=== PATIENT | male | born 1985 ===

== ENCOUNTER 2023-10-03 15:08 | Emergency (ER) | payer SELFPAY ==
[2023-10-03 15:16] VITALS: BP 174/103; PULSE 73; RESP 16; TEMP 36.5; O2SAT 98; BMI 31.7
--- NOTE | 2023-10-03 15:16 | ED.EYEPROB ---
HPI - Eye Problem General Chief complaint: Eye Problems Stated complaint: Red eye, swollen for three days. Time Seen by Provider: 10/03/23 15:29 Source: patient Mode of arrival: ambulatory Limitations: no limitations History of Present Illness ED Provider: Darrin MUNROE HPI Narrative: 38 yold male with no pmh presents to the ED 4 days of right eye redness with crusting in the morning, and yellow clear discharge. Patient denies any recent trauma to the eye. Patient does not wear contacts. Only thing patient remembers swimming in the river. Patient denies any fever, chills, headache, or loss of vision. Patient denies any burrowing eye pain. Related Data Previous Rx's ?Medication ?Instructions ?Recorded erythromycin 5 mg/gram (0.5 %) eye 0.5 inch ophthalmic (eye) QID 7 10/03/23 ointment days #3.5 grams naproxen 500 mg tablet 500 mg PO BID PRN pain 7 days #14 10/03/23 tabs Allergies Allergy/AdvReac Type Severity Reaction Status Date / Time No Known Allergies Allergy Verified 10/03/23 15:19 Review of Systems Review of Systems: right eye redness/pain Yes all other systems are reviewed and are negative PMFSH Social History Social History Advance Directives: No Advance Directives Information Provided: No Do you have a plan to hurt others: No Plan Physical Exam Vital Signs: Vital Signs: Last Vital Signs Temp 97.1 F 10/03/23 17:37 Pulse 72 10/03/23 17:37 Resp 18 10/03/23 17:37 BP 146/96 H 10/03/23 17:37 Pulse Ox 99 10/03/23 17:37 O2 Del Method Room Air 10/03/23 17:37 BMI result Body Mass Index 31.7 Const: General: cooperative, healthy appearing, comfortable, no acute distress, well developed, alert, awake and Physically active Orientation/consciousness: patient oriented x3 HEENT: Head: Yes normal to inspection, Yes No palpable skull fracture present, Yes normocephalic, Yes atraumatic and No abrasion Eyes: Other: Right eye: Positive for yellow crusting, matting, discharged on eyelids. Positive for conjunctival scleral redness. Negative for hyphema. Negative for globe tenderness or photophobia. Negative for mass foreign body on eyelids or on the eye. Visual acuity 20/25. Tetracaine placed in eye. Fluorescein dye placed. Wood's lamp negative for corneal abrasion, corneal ulcer, or signs of globe rupture. Negative foreign body. Tonometry pressure is 16 Left eye normal. 20/20. Tonometry pressure is 15 Neck: Neck: Yes normal visual inspection, Yes full ROM, Yes no lymphadenopathy, Yes no meningeal signs, Yes trachea midline, Yes supple, No anterior neck swelling and No tender Chest: Chest palpation & inspection: normal inspection of the chest and normal palpation of entire chest wall Resp: Effort & Inspection: normal respiratory effort and able to speak in complete sentences Auscultation: clear to auscultation bilaterally Cardio: Jugular venous distension: no JVD Heart sounds: S1 normal heart sound present and S2 normal heart sound present GI: Inspection: Yes normal to inspection Palpation (GI): Soft to palpation, not firm, nontender, no guarding and not rigid : General: No CVA tenderness and Yes no CVA tenderness Back/Spine/Pelvis: Back: no CVA tenderness, No CVA tenderness and No back tenderness Skin: General skin exam: no rashes or lesions noted, elasticity normal and turgor normal Neuro: General: patient oriented x3, gait normal, tone normal, moves all extremities, Normal light touch and pain sensation, no meningeal signs, no focal motor deficits, CN's II-XI intact bilaterally and normal sensation to monofilament Extrem: General: Yes normal to inspection, Yes full ROM and Yes capillary refill normal Psych: Appearance: grossly normal, well kempt and not disheveled Course Course Course Narrative: This is a Rapid Medical Examination (RME) performed by Garcia Estevez PA-C in triage. Full HPI, ROS, assessment and treatment plan per primary provider in the Main ED. 38 yo male here for eval of red eye redness/swelling times 2-3 days. Reports waking up like this. Does not recall getting anything into the eye however feels like there is something in there. Reports yellow/white discharge in the morning with crusting and mild blurred vision. Using [id number] eye drops he purchase from [facility]. Can not recall the name. Does not wear corrective lenses. + noted conjunctival injection throughout with chemosis. No obvious foreign body. Noted swelling to upper eyelid. EOMs intact without pain. + attempted to obtain IOPs in triage however Ede-Pen malfunctioning. Patient hypertensive in triage. Admits to history of hypertension previously managed with medications. Has been out of his meds since moving from [place]. Plan: Tetracaine, fluorescein, IOP Medications Administered Discontinued Medications Generic Name Dose Route Start Last Admin Trade Name Joann PRN Reason Stop Dose Admin Fluorescein Sodium 1 strip 10/03/23 15:25 10/03/23 15:50 Fluorescein Sodium Strip EYE-RIGHT 10/03/23 15:26 1 strip ONCE ONE Administration Tetracaine HCl 1 drop 10/03/23 15:25 10/03/23 15:50 Tetracaine Hcl/Pf 0.5% Oph Ivelisse 4 Ml Drops EYE-RIGHT 10/03/23 15:26 1 drop ONCE ONE Administration Medical Decision Making Medical Decision Making MDM Narrative: 38-year-old male presents to ED for right right eye for the past 4 days with yellow clear crusting matting and discharge from eyelids. Patient denies any severe eye pain or change in vision. Patient denies any recent trauma to the eye. Patient denies using contacts. Patient denies any loss of vision. Physical exam does not indicate glaucoma, corneal abrasion, corneal ulcers, or globe rupture. Not suspecting acute retinal arterial or venous occlusion. Not suspecting carotid dissection. Not suspecting orbital cellulitis. No need for CAT scan. Differential Diagnosis Differential Diagnoses: The differential diagnosis associated with the presentation includes (Glaucoma, corneal abrasion, conjunctivitis, corneal ulcers, laboratory) Admission/Observation Consideration of admission/observation: Escalation of care including admission/observation considered Independent Historian Clinical information obtained from an independent historian. History obtained from or confirmed by: Other (Patient) External Record Review External record reviewed: Other (Prior visits) Prescription Management I considered prescription management with: Antibiotic Discharge Plan Discharge Clinical Impression: Bacterial conjunctivitis Patient Disposition: Home, Self-Care Instructions: Conjunctivitis (ED) Additional Instructions: Recommend follow-up with primary care provider. Return to the ED immediately for any loss or change in vision, severe eye pain, worsening redness, worsening discharge, swelling of eyelids, headache, fever, chills, nausea, vomiting, blood in the eyes, or any other concerning symptoms. Prescriptions: New erythromycin 5 mg/gram (0.5 %) ointment 0.5 inch ophthalmic (eye) QID 7 Days Qty: 3.5 0RF naproxen 500 mg tablet 500 mg PO BID PRN (Reason: pain) 7 Days Qty: 14 0RF Referrals: Serge Waller [Physician] - (Right eye redness. Bacterial conjunctivitis) Stand Alone Forms: Work/School Release Interventions: ED Discharge Assessment Last Done: 10/03/23 17:37 Discharge Date/Time: 10/03/23 17:37 Print Language: Romansh
[2023-10-03] MEDS: Fluorescein Sodium STRIP 1 STRIP EYE-RIGHT (15:50)
[2023-10-03] MEDS: Tetracaine HCl/PF 0.5% Oph Sol 4 ML DROPS 1 DROP EYE-RIGHT (15:50)
[2023-10-03 16:53] VITALS: BP 146/96; PULSE 72; RESP 18; TEMP 36.2; O2SAT 99
--- NOTE | 2023-10-03 17:34 | PC.NURSE ---
medications administered by provider, visual acuity performed, vss
[2023-10-03 17:37] VITALS: BP 146/96; PULSE 72; RESP 18; TEMP 36.2; O2SAT 99
== END 2023-10-03 17:37 | disposition home or self-care (01) ==
PROVIDERS: Emergency Provider Student in an Organized Health Care Education/Training Program
DX: H10.89 Other conjunctivitis (principal)
CPT/HCPCS: 99283

== ENCOUNTER 2023-12-09 13:09 | Emergency (ER) | payer SELFPAY ==
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
[2023-12-09 14:40] VITALS: BP 141/99; PULSE 62; RESP 19; TEMP 36.6; O2SAT 98; BMI 30.7
[2023-12-09 14:45] VITALS: BP 141/99; PULSE 62; RESP 19; TEMP 36.6; O2SAT 98
== END 2023-12-09 14:52 | disposition home or self-care (01) ==
LOC: HO.ED 14:47
PROVIDERS: Emergency Provider Emergency Medicine
DX: S39.012A Strain of muscle, fascia and tendon of lower back, initial encounter (principal); V43.52XA Car driver injured in collision with other type car in traffic accident, initial encounter; Y93.89 Activity, other specified; Y92.414 Local residential or business street as the place of occurrence of the external cause; Y99.9 Unspecified external cause status
CPT/HCPCS: 99282; 99283